=== PATIENT | female | born 1990 | race Two or more races ===

== ENCOUNTER 2017-02-12 09:48 | Emergency (ER) | payer MEDICAID ==
[~2017-02-12] VITALS: Ht 162.6 cm; Wt 94.3 kg
[~2017-02-12 09:48] MED LIST: AZITHROMYCIN250 MG ORAL; BENTYL10 MG ORAL; NKM; TAMIFLU75 MG ORAL; TRI-SPRINTEC1 EACH PO; ZANTAC150 MG ORAL; ZOFRAN ODT4 MG ORAL
[2017-02-12 10:08] VITALS: BP 135/95
--- NOTE | 2017-02-12 10:21 | Emergency Room Report ---
History of Present Illness General Chief Complaint: Nausea, Vomiting, and Diarrhea Source: Patient, Medical Record Present Illness HPI 26-year-old female history of polycystic ovarian syndrome p/w nausea vomiting diarrhea for 3 days. Associated with mild crampy abdominal pain which is relieved when she has diarrhea Pt reports n/v, 2 episodes of nbnb vomiting, per day 2-3 episodes of watery non bloody diarrhea Denies fever, chills. No hx of abdominal surgeries. No hx of endoscopies/colonoscopies. Allergies: Coded Allergies: No Known Allergies (Verified Allergy, Unknown, 01/15/10) Patient History Past Medical History: see triage record Past Surgical History: none Pertinent Family History: none Last Menstrual Period: 09/17/16 Reviewed Nursing Documentation: PMH: Agreed, PSxH: Agreed Nursing Documentation-PMH Past Medical History: No History, Except For Hx Dialysis: No - IRREGULAR MENSTURATION Review of Systems All Other Systems: negative except mentioned in HPI Physical Exam Vital Signs Date Time Temp Pulse Resp B/P (MAP) Pulse Ox O2 Delivery O2 Flow Rate FiO2 02/12/17 09:52 97.9 94 18 135/95 98 Room Air Sp02 EP Interpretation: reviewed, normal General Appearance: normal inspection, well appearing, no apparent distress, alert, GCS 15, non-toxic Head: normocephalic, atraumatic Eyes: bilateral eye normal inspection, bilateral eye PERRL, bilateral eye EOMI ENT: normal ENT inspection, normal pharynx, normal voice, moist mucus membranes Neck: normal inspection, full range of motion, supple Respiratory: normal inspection, lungs clear, normal breath sounds, no respiratory distress, no retraction, no wheezing, speaking full sentences, chest symmetrical Cardiovascular #1: normal inspection, regular rate, rhythm, no edema, normal capillary refill Cardiovascular #2: 2+ radial (R), 2+ radial (L) Gastrointestinal: normal inspection, non tender, soft, non-distended, no guarding Musculoskeletal: normal inspection, back normal, normal range of motion, non- tender Neurologic: normal inspection, alert, oriented x3, responsive, motor strength/ tone normal, sensory intact, normal gait, speech normal Psychiatric: normal inspection, judgement/insight normal, memory normal Skin: normal inspection, normal color, no rash, warm/dry, well hydrated, normal turgor Medical Decision Making Diagnostic Impression: Primary Impression: Nausea, vomiting, and diarrhea ER Course 26-year-old female nausea vomiting diarrhea Differential Diagnosis: Gastritis, gastroenteritis, cholecystitis, appendicitis, UTI/pyelo At this time abdomen is soft nontender, not likely to have acute intra- abdominal surgical pathology, will hold CT for now. Plan: Basic labs, ua ER course: Patient has remained stable during ED stay. Repeat abdominal exam is nontender. Tolerating PO Patient has remained well appearing during ED stay, conversing with mother at bedside, smiling, not in acute distress nontoxic. Leukocytosis noted to be 16, likely secondary to either vomiting or viral gastroenteritis. She appears very well-hydrated. No further episodes of nausea vomiting in the emergency room. We'll discharge home with very close followup in 24-48 hours with primary care doctor. Disposition: Patient is to be discharged to home. Patient is instructed to follow up with their primary care doctor within 5 days. Strict return precautions discussed with patient such as fever, chills, worsening/severe abdominal pain, nausea, vomiting, black or bloody stools, which may indicate severe illness. Patient verbalizes understanding and agrees with plan. Please note that this Emergency Department Report was dictated using Pipettemicrofilm clerk technology software, occasionally this can lead to erroneous entry secondary to interpretation by the dictation equipment Laboratory Tests Test 02/12/17 10:02 02/12/17 10:30 Urine Color Yellow Urine Appearance Clear Urine pH 5 (4.5-8.0) Urine Specific [place] 1.020 (1.005-1.035) Urine Protein 2+ (NEGATIVE) H Urine Glucose (UA) Negative (NEGATIVE) Urine Ketones 1+ (NEGATIVE) H Urine Occult Blood 1+ (NEGATIVE) H Urine Nitrite Negative (NEGATIVE) Urine Bilirubin Negative (NEGATIVE) Urine Urobilinogen 1 MG/DL (0.0-1.0) H Urine Leukocyte Esterase 3+ (NEGATIVE) H Urine RBC 2-4 /HPF (0 - 2) H Urine WBC 5-10 /HPF (0 - 2) H Urine Squamous Epithelial Cells Moderate /LPF (NONE/OCC) H Urine Calcium Oxalate Crystals Few /LPF (NONE) Urine Bacteria Few /HPF (NONE) Urine HCG, Qualitative Negative White Blood Count 16.1 K/UL (4.8-10.8) H Red Blood Count 4.69 M/UL (4.20-5.40) Hemoglobin 14.6 G/DL (12.0-16.0) Hematocrit 44.5 % (37.0-47.0) Mean Corpuscular Volume 95 FL (80-99) Mean Corpuscular Hemoglobin 31.1 PG (27.0-31.0) H Mean Corpuscular Hemoglobin Concent 32.8 G/DL (32.0-36.0) Red Cell Distribution Width 12.5 % (11.6-14.8) Platelet Count 392 K/UL (150-450) Mean Platelet Volume 7.8 FL (6.5-10.1) Neutrophils (%) (Auto) 72.3 % (45.0-75.0) Lymphocytes (%) (Auto) 19.0 % (20.0-45.0) L Monocytes (%) (Auto) 6.7 % (1.0-10.0) Eosinophils (%) (Auto) 1.4 % (0.0-3.0) Basophils (%) (Auto) 0.7 % (0.0-2.0) Sodium Level 141 MMOL/L (136-145) Potassium Level 3.4 MMOL/L (3.5-5.1) L Chloride Level 107 MMOL/L (98-107) Carbon Dioxide Level 23 MMOL/L (21-32) Anion Gap 11 mmol/L (5-15) Blood Urea Nitrogen 8 mg/dL (7-18) Creatinine 0.9 MG/DL (0.55-1.30) Estimate Glomerular Filtration Rate > 60 mL/min (>60) Glucose Level 107 MG/DL (74-106) H Calcium Level 9.6 MG/DL (8.5-10.1) Total Bilirubin 0.7 MG/DL (0.2-1.0) Aspartate Amino Transferase (AST) 27 U/L (15-37) Alanine Aminotransferase (ALT) 60 U/L (12-78) Alkaline Phosphatase 97 U/L (46-116) Total Protein 8.4 G/DL (6.4-8.2) H Albumin 4.1 G/DL (3.4-5.0) Globulin 4.3 g/dL Albumin/Globulin Ratio 1.0 (1.0-2.7) Lipase 99 U/L (73-393) Last Vital Signs Date Time Temp Pulse Resp B/P (MAP) Pulse Ox O2 Delivery O2 Flow Rate FiO2 02/12/17 10:08 97.9 18 135/95 98 Room Air 02/12/17 09:52 94 Disposition: HOME, SELF-CARE Condition: Improved Departure Forms: Return to Work Return to Work in (Days): 1 Return to Work Date: Feb 13, 2017 Patient Instructions: Viral Gastroenteritis, Adult, [id number] Additional Instructions: Please followup with your doctor in one week Payton Somers M.D. Feb 12, 2017 10:21
[2017-02-12 10:30] LABS: APPEARANCE,URINE CLEAR; KETONES,URINE 1+ (NEGATIVE); LEUKOCYTE ESTERASE ,URINE 3+ (NEGATIVE); NITRITE,URINE NEGATIVE (NEGATIVE); PH,URINE 5 (4.5-8.0); PROTEIN,URINE 2+ (NEGATIVE); UROBILINOGEN,URINE 1 MG/DL (0.0-1.0)
[2017-02-12 10:41] LABS: BASOPHILS % (AUTO) 0.7 % (0.0-2.0); EOSINOPHILS % (AUTO) 1.4 % (0.0-3.0); MEAN CORPUSCULAR HEMOGLOBIN 31.1 PG (27.0-31.0); MEAN CORPUSCULAR HGB CONC 32.8 G/DL (32.0-36.0); MEAN CORPUSCULAR VOLUME 95 FL (80-99); MEAN PLATELET VOLUME 7.8 FL (6.5-10.1); MONOCYTES % (AUTO) 6.7 % (1.0-10.0); NEUTROPHILS % (AUTO) 72.3 % (45.0-75.0); PLATELET COUNT 392 K/UL (150-450); RED BLOOD COUNT 4.69 M/UL (4.20-5.40); RED CELL DISTRIBUTION WIDTH 12.5 % (11.6-14.8); WHITE BLOOD COUNT 16.1 K/UL (4.8-10.8)
[2017-02-12 10:43] LABS: BACTERIA,URINE FEW /HPF; SQUAMOUS EPITHELIAL CELL,UR MODERATE /LPF (NONE/OCC)
[2017-02-12 10:44] LABS: CALCIUM OXALATE CRYSTALS,UR FEW /LPF
[2017-02-12 10:53] LABS: ALANINE AMINOTRANSFERASE 60 U/L (12-78); ANION GAP 11 mmol/L (5-15); ASPARTATE AMINO TRANSFERASE 27 U/L (15-37); CALCIUM 9.6 MG/DL (8.5-10.1); CARBON DIOXIDE 23 MMOL/L (21-32); CHLORIDE 107 MMOL/L (98-107); CREATININE 0.9 MG/DL (0.55-1.30); GLOMERULAR FILTRATION RATE > 60 mL/min (>60); LIPASE 99 U/L (73-393); POTASSIUM 3.4 MMOL/L (3.5-5.1); SODIUM 141 MMOL/L (136-145); TOTAL PROTEIN 8.4 G/DL (6.4-8.2)
[2017-02-12 10:55] VITALS: BP 132/83
[2017-02-12 12:30] VITALS: BP 133/76
[2017-02-12 12:32] VITALS: BP 132/83
== END 2017-02-12 12:34 | disposition home or self-care (01) ==
LOC: EMR 10:26
DX: R11.2 Nausea with vomiting, unspecified (principal); R19.7 Diarrhea, unspecified; N92.6 Irregular menstruation, unspecified
CPT/HCPCS: 36415; 80053; 81003; 81025; 83690; 85025; 96374; 99284; J2405

== ENCOUNTER 2017-05-02 13:32 | Emergency (ER) | payer MEDICAID ==
[~2017-05-02] VITALS: Ht 162.6 cm; Wt 93.4 kg
[2017-05-02] MEDS ORDERED: IMITREX50 MG ORAL (14:43)
[2017-05-02] MEDS ORDERED: Ketorolac 60mg Inj IM ONE (14:45)
[2017-05-02 15:00] VITALS: BP 140/98
--- NOTE | 2017-05-02 20:42 | Emergency Room Report ---
History of Present Illness General Chief Complaint: Eye Problems Source: Patient Present Illness HPI The patient is a 26-year-old female presenting for headache since yesterday. She states the pain is an 8/10 sharp sensation to her right eye and does not radiate. She states that she has had this in the past. Pain lasts for approximately one hour and then begins to fade. She has tried Motrin which does help. She admits to some tearing from her right eye as well as blurred vision. She denies any other symptoms including N, V, F, chills, dizziness, neck pain or stiffness Allergies: Coded Allergies: No Known Allergies (Verified Allergy, Unknown, 01/15/10) Patient History Past Medical History: see triage record Pertinent Family History: none Last Menstrual Period: Polycystic ovarian syndrome Now: No Reviewed Nursing Documentation: PMH: Agreed, PSxH: Agreed Nursing Documentation-PMH Hx Dialysis: No - Polycystic Ovarian Syndrome Review of Systems All Other Systems: negative except mentioned in HPI Physical Exam Vital Signs Date Time Temp Pulse Resp B/P (MAP) Pulse Ox O2 Delivery O2 Flow Rate FiO2 05/02/17 13:49 97.9 79 19 146/105 99 Room Air Sp02 EP Interpretation: reviewed, normal General Appearance: no apparent distress, alert, GCS 15, non-toxic Head: normocephalic, atraumatic Eyes: right eye Fundiscopic - unremarkable, bilateral eye normal inspection, bilateral eye PERRL, bilateral eye EOMI ENT: hearing grossly normal, normal pharynx, no angioedema, normal voice Neck: full range of motion, supple/symm/no masses Respiratory: chest non-tender, lungs clear, normal breath sounds, speaking full sentences Cardiovascular #1: regular rate, rhythm, no edema Musculoskeletal: back normal, gait/station normal, normal range of motion, non- tender Neurologic: alert, oriented x3, responsive, motor strength/tone normal, sensory intact, speech normal Psychiatric: judgement/insight normal, memory normal, mood/affect normal, no suicidal/homicidal ideation Skin: normal color, no rash, warm/dry, well hydrated Medical Decision Making PA Attestation Dr. Somers is my supervising physician. Patient management was discussed with my supervising physician Diagnostic Impression: Primary Impression: Headache Qualified Codes: G44.099 - Other trigeminal autonomic cephalgias (tac), not intractable ER Course The patient is a 26-year-old female presenting for headache since yesterday. Differential diagnoses include but not limited to Migraine, tension headache, cluster [place], conjunctivitis, among others PE: Afebrile. NAD HEENT exam: Unremarkable. PERRL. EOMI. no injection. No eyelid edema. Funduscopic exam unremarkable. No hemorrhage. No retinal detachment The patient will be treated for likely cluster headache and will be discharged home. She will follow up with her primary doctor. ER precautions are given Last Vital Signs Date Time Temp Pulse Resp B/P (MAP) Pulse Ox O2 Delivery O2 Flow Rate FiO2 05/02/17 15:00 97.9 80 19 140/98 99 Room Air Status: improved Disposition: HOME, SELF-CARE Condition: Improved Scripts Sumatriptan Succinate* (IMITREX*) 50 Mg Tablet 50 MG ORAL DAILY PRN MIGRAINE, #15 TAB Prov: NIKO BATES 05/02/17 Patient Instructions: Cluster Headache, [id number] Additional Instructions: I discussed my findings with the patient. All questions and concerns have been answered. Treatment and medication compliance have been addressed. Return to ED if symptoms worsen, new symptoms arise, or if needed for any reason. Patient verbalized understanding of discharge instructions. Please follow up with primary doctor for further treatment and evaluation as soon as possible. May need referral to see eye doctor NIKO BATES May 02, 2017 20:42
== END 2017-05-02 15:00 | disposition home or self-care (01) ==
LOC: EMR 13:58
DX: R51 Headache (principal); E28.2 Polycystic ovarian syndrome
CPT/HCPCS: 96372; 99283

== ENCOUNTER 2018-04-05 17:19 | Emergency (ER) | payer MEDICAID ==
[~2018-04-05] VITALS: Ht 165.1 cm; Wt 95.7 kg
[~2018-04-05 17:19] MED LIST changes: +IMITREX50 MG ORAL
--- NOTE | 2018-04-05 18:02 | Emergency Room Report ---
History of Present Illness General Chief Complaint: Abdominal Pain Source: Patient Present Illness HPI 27-year-old female patient presents the ER complaining of epigastric pain times 1 day. Reports vomiting during this time. Reports last episode of vomiting 4 hours ago, denies hematemesis or coffee-ground emesis. Reports is been able tolerate p.o. water since that time. Also reports one episode of diarrhea yesterday. Denies blood in diarrhea. Reports no recent travel outside the country. Reports contacts at home with similar symptoms. Reports history of similar symptoms in the past, states they have occurred intermittently over the past month. Reports abdominal pain symptoms have since of sided currently, states she took Motrin yesterday for pain symptoms. Reports symptoms began after eating food. Denies fever, chest pain, shortness of breath. Reports has been trying lots of "new foods" following a trip to another state. Reports able to pass flatus. Allergies: Coded Allergies: No Known Allergies (Verified Allergy, Unknown, 01/15/10) Patient History Past Medical History: see triage record Last Menstrual Period: 01/28/2018 Reviewed Nursing Documentation: PMH: Agreed; PSxH: Agreed Nursing Documentation-PMH Past Medical History: No History, Except For Hx Hypertension: Yes Hx Dialysis: No - Polycystic Ovarian Syndrome Review of Systems All Other Systems: negative except mentioned in HPI Physical Exam Vital Signs Date Time Temp Pulse Resp B/P (MAP) Pulse Ox O2 Delivery O2 Flow Rate FiO2 04/05/18 17:38 98.4 80 14 172/93 98 Room Air Sp02 EP Interpretation: reviewed, normal General Appearance: well appearing, no apparent distress, alert, GCS 15, non- toxic Head: normocephalic, atraumatic Eyes: bilateral eye normal inspection, bilateral eye PERRL ENT: hearing grossly normal, normal pharynx, no angioedema, normal voice, uvula midline, moist mucus membranes Neck: full range of motion Respiratory: lungs clear, normal breath sounds, no rhonchi, no respiratory distress, no accessory muscle use, no wheezing, speaking full sentences Cardiovascular #1: regular rate, rhythm, no edema Gastrointestinal: non tender, soft, no mass, non-distended, no guarding, no rebound, other - Negative Rovsing, negative Hatch Genitourinary: no CVA tenderness Musculoskeletal: back normal, digits/nails normal, gait/station normal, normal range of motion, non-tender Neurologic: alert, oriented x3, responsive, motor strength/tone normal, sensory intact Psychiatric: mood/affect normal Skin: no rash Medical Decision Making PA Attestation Dr. Tejeda is my supervising Physician whom patient management has been discussed with. Diagnostic Impression: Primary Impression: Acid reflux Additional Impression: Diarrhea ER Course Pt. presents to the ED c/o vomiting and diarrhea. Ddx considered but are not limited to viral syndrome, gastritis, enteritis, food poisoning, GERD, reflux, UTI, . Negative jaundice, negative Hatch sign, patient denies current abdominal pain, no fever, low suspicion for cholecystitis at this time, does not require ultrasound. Vital signs: are WNL, pt. is afebrile at discharge. ED COURSE: Patient provided zofran. Patient able to tolerate PO fluids. Physical exam benign, no abdominal TTP, negative Hatch sign, negative Rovsing, negative obturator, low suspicion for appendicitis or cholecystitis, does not require labs or imaging at this time. Offered patient abdominal ultrasound to rule out gallstones, patient declined. No fever, no blood in stool, no recent travel or hospitalizations, does not require abx treatment at this time. No signs of dehydration, moist mucus membranes, cap refill <2seconds, normal skin turgor. UA unremarkable, no signs of infection, urine negative. History and physical exam consistent with food poisoning versus acid reflux versus gastritis. Patient was noted provide patient with Pepcid and Tylenol at discharge to home. Followup with GI specialist. Patient instructed on BRAT diet. Patient instructed to remain hydrated, drink plenty of fluids. Patient questions asked and answered. Patient states understanding and agreement to treatment plan. ER precautions given, return to ER for new or worsening of symptoms. DISCHARGE: At this time pt. is stable for d/c to home. Patient is resting comfortably, laughing, in no acute distress, nontoxic appearing. Will provide printed patient care instructions, and any necessary prescriptions. Care plan and follow up instructions have been discussed with the patient prior to discharge. Patient instructed to followup with PCP in 3-5 days. Patient reports understanding and agreement to treatment plan. Patient questions asked and answered. ER precautions given; patient instructed to return to ER for new or worsening of symptoms including but not limited to fever, intractable vomiting, severe abdominal pain, blood in stool. - Please note that this Emergency Department Report was dictated using [employer]banprocess development chemist technology software, occasionally this can lead to erroneous entry secondary to interpretation by the dictation equipment. Labs Test 04/05/18 18:00 Urine Color Yellow Urine Appearance Clear Urine pH 5 (4.5-8.0) Urine Specific [place] 1.010 (1.005-1.035) Urine Protein Negative (NEGATIVE) Urine Glucose (UA) Negative (NEGATIVE) Urine Ketones Negative (NEGATIVE) Urine Blood Negative (NEGATIVE) Urine Nitrite Negative (NEGATIVE) Urine Bilirubin Negative (NEGATIVE) Urine Urobilinogen Normal MG/DL (0.0-1.0) Urine Leukocyte Esterase 2+ (NEGATIVE) Urine RBC 0-2 /HPF (0 - 2) Urine WBC 2-4 /HPF (0 - 2) Urine Squamous Epithelial Cells Few /LPF (NONE/OCC) Urine Bacteria Few /HPF (NONE) Urine HCG, Qualitative Negative (NEGATIVE) Last Vital Signs Date Time Temp Pulse Resp B/P (MAP) Pulse Ox O2 Delivery O2 Flow Rate FiO2 04/05/18 17:38 98.4 80 14 172/93 98 Room Air Disposition: HOME, SELF-CARE Condition: Stable Scripts Famotidine (PEPCID AC) 10 Mg Tablet 10 MG PO DAILY, #30 TAB Prov: Larry Gomes 04/05/18 Acetaminophen* (TYLENOL EXTRA STRENGTH*) 500 Mg Tablet 500 MG ORAL Q8H PRN for Prn Headache/Temp > 101, #30 TAB 0 Refills Prov: Larry Gomes 04/05/18 Patient Instructions: Abdominal Pain, Adult, Food Poisoning, Gastritis, Adult, Gastroesophageal Reflux Disease, Adult Additional Instructions: Followup with primary care provider in 3 -5 days. Follow-up with GI specialist. Avoid spicy foods, avoid dairy foods. BRAT diet: bananas, rice, apple sauce, toast. Clear liquid diet. Keep track of foods with diary. Consider Immodium for diarrhea and Tylenol for pain symptoms. Take medications as directed. Patient questions asked and answered. ER precautions given, patient instructed to return to ER immediately for any new or worsening of symptoms. Larry Gomes Apr 05, 2018 18:02
[2018-04-05 18:36] LABS: APPEARANCE,URINE CLEAR; BILIRUBIN, URINE NEGATIVE (NEGATIVE); GLUCOSE, URINE (UA) NEGATIVE (NEGATIVE); KETONES,URINE NEGATIVE (NEGATIVE); LEUKOCYTE ESTERASE ,URINE 2+ (NEGATIVE); NITRITE,URINE NEGATIVE (NEGATIVE); PH,URINE 5 (4.5-8.0); PROTEIN,URINE NEGATIVE (NEGATIVE); UROBILINOGEN,URINE NORMAL MG/DL (0.0-1.0)
[2018-04-05 18:40] LABS: COLOR,URINE YELLOW
[2018-04-05 18:49] VITALS: BP 165/87
[2018-04-05] MEDS ORDERED: PEPCID AC10 MG PO (18:57)
[2018-04-05] MEDS ORDERED: TYLENOL EXTRA500 MG ORAL (18:57)
[2018-04-05 19:00] VITALS: BP 143/85
== END 2018-04-05 19:00 | disposition home or self-care (01) ==
LOC: EMR 18:27
DX: K21.9 Gastro-esophageal reflux disease without esophagitis (principal); R19.7 Diarrhea, unspecified; I10 Essential (primary) hypertension
CPT/HCPCS: 81003; 81025; 99283

== ENCOUNTER 2018-05-18 19:52 | Emergency (ER) | payer MEDICAID ==
[~2018-05-18] VITALS: Ht 165.1 cm; Wt 95.3 kg
[~2018-05-18 19:52] MED LIST changes: +PEPCID AC10 MG PO; +TYLENOL EXTRA500 MG ORAL
[2018-05-18 20:09] VITALS: BP 163/95
--- NOTE | 2018-05-18 20:09 | NUR ---
ED Nurse Note: Migraine, since Wednesday, patient has complaints of nausea and vomitting, pain level 8/10.
[2018-05-18] MEDS ORDERED: SUMAtriptan 50mg tab ORAL PRN (21:15)
[2018-05-18] MEDS ORDERED: IMITREX50 MG ORAL (21:28)
[2018-05-18 21:30] VITALS: BP 155/93
--- NOTE | 2018-05-18 21:30 | NUR ---
ED Nurse Note: PT is medically cleared per ERMD order. pt is stable for transfer. pt status condition and vital signs are reported to ERMD prior to DC. pt vital signs are stable. pt is alert and oriented times 4. pt left with all belongings, including DC ntoes and prescriptions. pt was able to teach back and understands DC notes and prescription. pt is instructed to follow up with primary MD as soon as possible, pt is instructed to return to ER if any variance in condition. ID band removed. pt is able to ambulate. pt is alert and oriented times 4. pt is stable for DC as per ERMD orders.
--- NOTE | 2018-05-19 00:22 | Emergency Room Report ---
History of Present Illness General Chief Complaint: Headache Source: Patient Present Illness HPI Patient presented for headache for several days. Patient gradual onset of symptoms. Patient reports having multiple similar headaches in the past. Patient previously been taking Imitrex but had run out of her medications. Patient denies any vomiting. She reports having some nausea. Headache was throbbing sensation to the left side of her head. She denies any neck stiffness. She denies any abdominal pain or fever. This is similar to her prior headaches. Allergies: Coded Allergies: No Known Allergies (Verified Allergy, Unknown, 01/15/10) Patient History Past Medical History: see triage record Last Menstrual Period: 01/24/18 Now: No - POCS : 0 Reviewed Nursing Documentation: PMH: Agreed; PSxH: Agreed Nursing Documentation-PMH Hx Hypertension: Yes Hx Dialysis: No - Polycystic Ovarian Syndrome Hx Neurological Problems: Yes - migraines Review of Systems All Other Systems: negative except mentioned in HPI Physical Exam Vital Signs Date Time Temp Pulse Resp B/P (MAP) Pulse Ox O2 Delivery O2 Flow Rate FiO2 05/18/18 20:01 98.4 78 17 167/98 97 Room Air General Appearance: well appearing, no apparent distress, alert, GCS 15 Head: normocephalic, atraumatic ENT: hearing grossly normal, normal voice Neck: full range of motion, supple Respiratory: no respiratory distress, speaking full sentences Gastrointestinal: normal inspection Neurologic: normal inspection, alert, oriented x3, responsive, kaitara taraka III-XII nml as tested, normal gait Psychiatric: mood/affect normal Skin: no rash Medical Decision Making Diagnostic Impression: Primary Impression: Migraine headache ER Course . Patient presented for headache. Differential diagnoses included but was not limited to skull fracture, subarachnoid hemorrhage, meningitis, aneurysm, mass lesion, intracranial hemorrhage. Patient has a benign exam and does not appear to require any further imaging or laboratory testing at this time. Patient states that she has had multiple similar headaches in the past and this appears to be patient's usual migraine. She was given prescription for Imitrex. She was given Imitrex in the emergency department. Patient was advised to return if she had any worsening of condition or other concerns. Last Vital Signs Date Time Temp Pulse Resp B/P (MAP) Pulse Ox O2 Delivery O2 Flow Rate FiO2 05/18/18 21:30 98.2 67 17 148/88 97 Room Air Status: improved Disposition: HOME, SELF-CARE Condition: Stable Scripts Sumatriptan Succinate* (IMITREX*) 50 Mg Tablet 50 MG ORAL DAILY PRN MIGRAINE, #14 TAB Prov: Zia Hoffman MD 05/18/18 Referrals: [facility],REFERR[facility] (PCP) Patient Instructions: Migraine Headache Zia Hoffman MD May 19, 2018 00:22
== END 2018-05-18 22:00 | disposition home or self-care (01) ==
LOC: EMR 21:39
DX: G43.909 Migraine, unspecified, not intractable, without status migrainosus (principal); I10 Essential (primary) hypertension
CPT/HCPCS: 99282

== ENCOUNTER 2019-01-04 11:14 | Emergency (ER) | payer MEDICAID ==
[~2019-01-04] VITALS: Ht 165.1 cm; Wt 91.2 kg
[2019-01-04] MEDS ORDERED: METFORMIN HCL500 M1 ORAL (11:26)
[2019-01-04 11:30] VITALS: BP 158/97
--- NOTE | 2019-01-04 11:30 | NUR ---
ED Nurse Note: pt walked in to ED due to headache, nuasea and lower back pain. denies any heavy lift or injury. denies any urinary problem. AAO x4. respirations even and non-labored noted. skin warm to touch. no open wound noted. will wait for the further order.
[2019-01-04 11:49] LABS: APPEARANCE,URINE CLEAR; BILIRUBIN, URINE NEGATIVE (NEGATIVE); COLOR,URINE PALE YELLOW; GLUCOSE, URINE (UA) NEGATIVE (NEGATIVE); KETONES,URINE NEGATIVE (NEGATIVE); LEUKOCYTE ESTERASE ,URINE 1+ (NEGATIVE); NITRITE,URINE NEGATIVE (NEGATIVE); PH,URINE 6.5 (4.5-8.0); PROTEIN,URINE NEGATIVE (NEGATIVE); UROBILINOGEN,URINE NORMAL MG/DL (0.0-1.0)
--- NOTE | 2019-01-04 12:00 | Emergency Room Report ---
History of Present Illness General Chief Complaint: Vomiting Source: Patient Present Illness HPI Disclaimer: Please note that this report is being documented using [employer] technology. This can lead to erroneous entry secondary to incorrect interpretation by the dictating instrument. HPI: 28-year-old female with history of migraines and hypertension presents for evaluation of back pain, headaches and vomiting. Symptoms began 3 days ago with aching bilateral back pain. There was no reported trauma or injury. 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 She then progressed to have a frontal pounding headache without photophobia, photophobia or vomiting. She did have an 3 episodes of vomiting last night but attributes to the food she was eating. She denies any abdominal pain, diarrhea, dysuria, hematuria, flank pain or nausea at the moment. Denies any hematemesis or hematochezia. States she is feeling much better though wanted evaluation given the vomiting and continued back pain. PMH: Migraine headaches, hypertension PSH: Tonsillectomy Allergies: Denies Social Hx: Denies drug or alcohol abuse Allergies: Coded Allergies: No Known Allergies (Verified Allergy, Unknown, 01/15/10) Patient History Last Menstrual Period: 08/31/2018 Now: No - Nexplanon Implant Nursing Documentation-PMH Past Medical History: No History, Except For Hx Hypertension: Yes Hx Dialysis: No - Polycystic Ovarian Syndrome Hx Neurological Problems: Yes - migraines Review of Systems All Other Systems: negative except mentioned in HPI Physical Exam Vital Signs Date Time Temp Pulse Resp B/P (MAP) Pulse Ox O2 Delivery O2 Flow Rate FiO2 01/04/19 11:21 98.4 71 20 158/97 (117) 98 Room Air General: Awake and alert, no acute distress HEENT: NC/AT. EOMI. PERRLA. No nystagmus. Tenderness over the frontal and maxillary sinuses bilaterally. Moist mucous membranes Cardiovascular: RRR. S1 and S2 normal. No murmur appreciated Resp: Normal work of breathing. No cough, wheezing or crackles appreciated Abdomen: Abdomen is soft, nondistended, obese. Nontender Skin: Intact. No abrasions, laceration or rash over the exposed skin MSK: Normal tone and bulk. Moving all extremities. No obvious deformity. Neuro: Awake and alert. Mentating appropriately. Back/Spine: No midline tenderness in the cervical, thoracic or lumbosacral spine. Moderate paraspinal tenderness and tenderness in the mid scapular line bilaterally in the lumbosacral region. Medical Decision Making Diagnostic Impression: Primary Impression: Back spasm Additional Impression: Headache ER Course Is a 28-year-old female brought in for evaluation of lower back pain, headache and 3 episodes of emesis last night which are now resolved. Difference includes was not limited to musculoskeletal back pain, muscle spasm, occult fracture, nephrolithiasis, ectopic , gastroenteritis, pancreatitis, cholecystitis, choledocholithiasis, urinary tract infection, migraine headache, cluster headache, tension headache. The patient has no red flag symptoms of cauda equina and without obvious trauma or episode of injury do not believe imaging is indicated. Her tenderness is paraspinal and has very little midline tenderness. She will be treated with NSAIDs and muscle relaxer. Do not believe she requires head imaging at this time as her headache is mild, typical for her presentation is likely trigger of dehydration knowing the chronic back pain. Will check screening labs, provide IV hydration, pain medication and muscle relaxer. She is overall very well-appearing and I anticipate discharge home. Laboratory Tests Test 01/04/19 11:45 01/04/19 11:50 Urine Color Pale yellow Urine Appearance Clear Urine pH 6.5 (4.5-8.0) Urine Specific [place] 1.010 (1.005-1.035) Urine Protein Negative (NEGATIVE) Urine Glucose (UA) Negative (NEGATIVE) Urine Ketones Negative (NEGATIVE) Urine Blood Negative (NEGATIVE) Urine Nitrite Negative (NEGATIVE) Urine Bilirubin Negative (NEGATIVE) Urine Urobilinogen Normal MG/DL (0.0-1.0) Urine Leukocyte Esterase 1+ (NEGATIVE) H Urine RBC 0 /HPF (0 - 2) Urine WBC 2-4 /HPF (0 - 2) Urine Squamous Epithelial Cells Moderate /LPF (NONE/OCC) H Urine Bacteria Few /HPF (NONE) Urine HCG, Qualitative Negative (NEGATIVE) White Blood Count 11.3 K/UL (4.8-10.8) H Red Blood Count 4.34 M/UL (4.20-5.40) Hemoglobin 13.2 G/DL (12.0-16.0) Hematocrit 40.0 % (37.0-47.0) Mean Corpuscular Volume 92 FL (80-99) Mean Corpuscular Hemoglobin 30.5 PG (27.0-31.0) Mean Corpuscular Hemoglobin Concent 33.0 G/DL (32.0-36.0) Red Cell Distribution Width 12.1 % (11.6-14.8) Platelet Count 351 K/UL (150-450) Mean Platelet Volume 7.4 FL (6.5-10.1) Neutrophils (%) (Auto) 65.1 % (45.0-75.0) Lymphocytes (%) (Auto) 27.3 % (20.0-45.0) Monocytes (%) (Auto) 6.2 % (1.0-10.0) Eosinophils (%) (Auto) 0.8 % (0.0-3.0) Basophils (%) (Auto) 0.6 % (0.0-2.0) Sodium Level 146 MMOL/L (136-145) H Potassium Level 4.0 MMOL/L (3.5-5.1) Chloride Level 110 MMOL/L (98-107) H Carbon Dioxide Level 27 MMOL/L (21-32) Anion Gap 9 mmol/L (5-15) Blood Urea Nitrogen 10 mg/dL (7-18) Creatinine 0.8 MG/DL (0.55-1.30) Estimate Glomerular Filtration Rate > 60 mL/min (>60) Glucose Level 108 MG/DL (74-106) H Calcium Level 8.8 MG/DL (8.5-10.1) Total Bilirubin 0.9 MG/DL (0.2-1.0) Aspartate Amino Transferase (AST) < 5 U/L (15-37) L Alanine Aminotransferase (ALT) 23 U/L (12-78) Alkaline Phosphatase 87 U/L (46-116) Total Protein 7.6 G/DL (6.4-8.2) Albumin 3.7 G/DL (3.4-5.0) Globulin 3.9 g/dL Albumin/Globulin Ratio 0.9 (1.0-2.7) L Lipase 125 U/L (73-393) Reevaluation Time: 13:22 Last Vital Signs Date Time Temp Pulse Resp B/P (MAP) Pulse Ox O2 Delivery O2 Flow Rate FiO2 01/04/19 11:21 98.4 71 20 158/97 (117) 98 Room Air Status: improved Reevaluation Impression Labs have returned largely unremarkable and mostly within normal limits. Patient's headache is improved after receiving Toradol and her back pain is improved after receiving Robaxin. She will be discharged with NSAIDs and continued muscle spasm care including Robaxin, exercises, warm soaks. Can return to work as able. We discussed reasons to return to the emergency department need for follow-up with her PMD. She understands and agrees with treatment plan will be discharged home. Disposition: HOME, SELF-CARE Condition: Improved Scripts Methocarbamol* (ROBAXIN-750*) 750 Mg Tablet 750 MG PO TID, #21 TAB 0 Refills Prov: Romero Tee MD 01/04/19 Ibuprofen* (MOTRIN*) 600 Mg Tablet 600 MG ORAL Q8H PRN for For Pain, #30 TAB 0 Refills Prov: Romero Tee MD 01/04/19 Romero Tee MD Jan 04, 2019 12:00
[2019-01-04 12:08] LABS: BASOPHILS % (AUTO) 0.6 % (0.0-2.0); EOSINOPHILS % (AUTO) 0.8 % (0.0-3.0); HEMOGLOBIN 13.2 G/DL (12.0-16.0); LYMPHOCYTES % (AUTO) 27.3 % (20.0-45.0); MEAN CORPUSCULAR VOLUME 92 FL (80-99); MONOCYTES % (AUTO) 6.2 % (1.0-10.0); NEUTROPHILS % (AUTO) 65.1 % (45.0-75.0); PLATELET COUNT 351 K/UL (150-450); RED BLOOD COUNT 4.34 M/UL (4.20-5.40); RED CELL DISTRIBUTION WIDTH 12.1 % (11.6-14.8); WHITE BLOOD COUNT 11.3 K/UL (4.8-10.8)
[2019-01-04] MEDS ORDERED: Metoclopramide 10mg/2ml Inj IVP ONE (12:15)
[2019-01-04] MEDS ORDERED: Methocarbamol 750mg tab ORAL ONE (12:15)
[2019-01-04] MEDS ORDERED: Ketorolac 30mg Inj IV ONE (12:15)
[2019-01-04 12:18] LABS: ANION GAP 9 mmol/L (5-15); BLOOD UREA NITROGEN 10 mg/dL (7-18); CALCIUM 8.8 MG/DL (8.5-10.1); CARBON DIOXIDE 27 MMOL/L (21-32); CHLORIDE 110 MMOL/L (98-107); CREATININE 0.8 MG/DL (0.55-1.30); SODIUM 146 MMOL/L (136-145)
[2019-01-04 12:25] LABS: ALANINE AMINOTRANSFERASE 23 U/L (12-78); ALBUMIN 3.7 G/DL (3.4-5.0); ALBUMIN/GLOBULIN RATIO 0.9 (1.0-2.7); ALKALINE PHOSPHATASE 87 U/L (46-116); ASPARTATE AMINO TRANSFERASE < 5 U/L (15-37); BILIRUBIN,TOTAL 0.9 MG/DL (0.2-1.0)
--- NOTE | 2019-01-04 13:06 | NUR ---
ED Nurse Note: pt lying in bed with eye closed. pain gets better after med. 07/03. will wait for the further order.
[2019-01-04] MEDS ORDERED: IBUPROFEN600 MG ORAL (13:22)
[2019-01-04] MEDS ORDERED: ROBAXIN-750750 MG PO (13:22)
[2019-01-04 13:26] VITALS: BP 124/78
--- NOTE | 2019-01-04 13:28 | NUR ---
ER DISCHARGE NOTE: Patient is cleared to be discharged per ERMD with family member, pt is aox4, on room air, with stable vital signs. pt was given dc and prescription instructions, pt was able to verbalize understanding, pt id band and iv site removed without complications. pt is able to ambulate with steady gait. pt took all belongings.
== END 2019-01-04 13:28 | disposition home or self-care (01) ==
LOC: EMR 12:27
DX: M62.830 Muscle spasm of back (principal); R51 Headache; I10 Essential (primary) hypertension
CPT/HCPCS: 36415; 80053; 81003; 81025; 83690; 85025; 96361; 96374; 96375; J1885; J2405; J2765; Z7502; 99284